=== PATIENT | male | born 1935 | race Caucasian/White ===

== ENCOUNTER 2025-04-30 09:19 | Emergency (ER) | payer MEDICARE, OTHER, SELFPAY ==
--- NOTE | ~2025-04-30 | CT_ITS ---
EXAMINATION: CT facial & cervical spine wo COMPARISON: None HISTORY: fall TECHNIQUE: Axial images were obtained without IV contrast. Sagittal, coronal reconstruction images were obtained from the axial views. CT scan performed using dose optimization techniques including the following automated exposure control; adjustment of mA and/or kV; use of iterative reconstruction technique. Automatic exposure control was used to reduce radiation dose. Permanent radiation dose record is archived to PACS. FINDINGS: CT facial bones: The nasal bones are intact. The anterior maxillary sinus fuller demonstrate a comminuted displaced fracture of the left anterior maxillary sinus wall with slightly displaced fracture of the lateral left maxillary sinus wall. The zygomatic arches are intact. The temporomandibular joints are intact. There is no retrobulbar hemorrhage identified. No preseptal swelling is noted with swelling overlying the left maxillary sinus. There are posttraumatic changes noted of the left maxillary sinus with air-fluid levels and areas of hemorrhage. There is a nondisplaced fracture of the left orbital floor. CT cervical spine: The lung apices demonstrate chronic changes. The soft tissues appear unremarkable. Grade 1 anterolisthesis of C4 on C5, no fracture is identified. There is severe loss of disc height at C5-6 and C6-7 with moderate to severe canal and foraminal stenosis. IMPRESSION: 1. Left-sided facial fractures detailed above with posttraumatic soft tissue changes. No acute fracture in the cervical spine. Reviewed, dictated and finalized at location P. IMPRESSION: 1. Left-sided facial fractures detailed above with posttraumatic soft tissue ch anges. No acute fracture in the cervical spine.
--- NOTE | ~2025-04-30 | CT_ITS ---
EXAMINATION: CT brain wo con DATE: 04/30/2025 09:46 INDICATION: Fall. TECHNIQUE: Computed tomography (CT) of the head was performed without intravenous contrast. The mA was adjusted according to patient size. Iterative reconstruction technique was employed. The dose-length product was 605.33 mGy-cm. COMPARISON: None FINDINGS: There are scattered areas of low attenuation in the cerebral white matter and deep gonzalez nuclei. There are old lacunar infarcts in the left basal ganglia. There is no intracranial hemorrhage, acute infarction, or abnormal intracranial mass lesion. The ventricles are normal in size. The mastoid air cells are normal. There are likely changes of ocular lens replacement surgeries. There are fractures of left zygomaticomaxillary complex. There is fluid in left maxillary sinus. IMPRESSION: 1. Old lacunar infarcts in the left basal ganglia. 2. Extensive nonspecific cerebral white matter disease and disease of the deep gonzalez nuclei, which likely represents chronic small vessel ischemic disease. 3. Fractures of left zygomaticomaxillary complex. Reviewed, dictated and finalized at location E.
[2025-04-30 09:27] VITALS: BP 161/74; PULSE 107; RESP 15; TEMP 36.7; O2SAT 99
--- NOTE | 2025-04-30 13:16 | ED.FALL ---
HPI - Fall General Chief Complaint: Fall Stated Complaint: fall Time Seen by Provider: 04/30/25 12:04 History of Present Illness HPI Narrative: 89-year-old male with past medical history including DVT on Xarelto presents to the emergency department today after mechanical slip and fall. Patient states that he was checking out of a local hotel when he tried to reach for his luggage cart it got away from him and he fell forward onto his left side face. Tried to brace his fall this hand. Did not lose consciousness and able to get up right away. Endorses some mild left-sided headache at this time and a mild nosebleed that has since stopped. Denies any fever, chills. No recent illnesses. Denies any syncope or presyncope. No prodromal symptoms. Was otherwise in his normal state of health. Bleeding controlled with bandages. Related Data Allergies Allergy/AdvReac Type Severity Reaction Status Date / Time No Known Allergies Allergy Verified 04/30/25 09:22 Review of Systems Review of Systems: As reviewed above in HPI Exam Narrative: GENERAL: [Well-appearing, well-nourished, and in no acute distress.] HEAD: [Normocephalic, atraumatic.] EYES: [PERRLA and EOMI.] ENT: Nares clear, no rhinorrhea or epistaxis. Mucous membranes moist. Small amounts of blood in the posterior oropharynx on left-sided noted but no active bleeding in the mouth. Anterior left bleeding from the nares visualized, no posterior bleeding seen, no contralateral nares bleeding. NECK: Supple. CHEST: [Clear to auscultation. No respiratory distress.] HEART: [Regular rate and rhythm]. No murmur heard. [Normal peripheral pulses.] ABDOMEN: [Soft, nondistended], [nontender], [No rigidity or guarding] EXTREMITIES: Normal range of motion. [No edema.] Full range of motion, no restricted supination or pronation, able to make okay sign at thumbs-up sign bilaterally. Image Editor strength equal 5/5. No overlying step-offs deformities. No midline spinal tenderness or deformity. No zygomatic tenderness or deformity on bilateral cheek exam. SKIN: Multiple superficial skin tears localized to various extremities. He has small superficial skin tears to his left dorsal surface of the left hand, lateral aspect of the posterior aspect of the distal left elbow. Small 1 cm laceration to the lateral aspect of the left face just past his eyebrow. No active bleeding or significant skin distance. Periorbital hematoma left-sided NEURO: [No focal deficits]. Alert and oriented [x3.] PSYCH: [Normal mood and affect.] Course Vital Signs Vital signs: Vital Signs Temperature 36.7 C 04/30/25 09:27 Pulse Rate 107 H 04/30/25 09:27 Respiratory Rate 15 04/30/25 09:27 Blood Pressure 161/74 H 04/30/25 09:27 Pulse Oximetry 99 04/30/25 09:27 Oxygen Delivery Room Air 04/30/25 09:27 Temperature 36.7 C 04/30/25 09:27 Pulse Rate 78 04/30/25 18:37 Respiratory Rate 20 04/30/25 18:37 Blood Pressure 188/100 H 04/30/25 18:37 Pulse Oximetry 98 04/30/25 18:37 Oxygen Delivery Room Air 04/30/25 09:27 Procedures Epistaxis Control left: Epistaxis Control Date: 04/30/25 Time Out Performed: Yes Nose Prepped With: phenylephrine Direct Inspection: yes Clots Removed by: blowing nose and manually Cautery Used: none Device Inserted: nasal tampon and hemostatic dressing Device Size: 5 Patient Tolerated Procedure: well Complications: continued epistaxis (minor droplets every 10-20seconds. otherwise hemostasis greatly improved) Laceration Laceration 1: Date: 04/30/25 Site: face Side (If applicable): left Size (cm): 1 Description: linear Depth: simple, single layer Local Anesthetic: none Pre-repair: wound explored, irrigated and deep structures intact ====== Skin Level ====== Skin layer closed with: dermabond ====== Subcutaneous Layer ====== ====== Muscle Layer ====== ====== Tendon Layer ====== Laceration 2: Date: 04/30/25 Site: upper extremity Side (If applicable): left Size (cm): 3 Description: linear and clean Depth: simple, single layer Local Anesthetic: none Pre-repair: wound explored, irrigated and deep structures intact ====== Skin Level ====== Skin layer closed with: dermabond and steri strips ====== Subcutaneous Layer ====== ====== Muscle Layer ====== ====== Tendon Layer ====== Laceration 3: Date: 04/30/25 Site: hand Side (If applicable): left Size (cm): 2 Description: linear Depth: simple, single layer Local Anesthetic: none Pre-repair: wound explored, irrigated and deep structures intact ====== Skin Level ====== Skin layer closed with: dermabond and steri strips ====== Subcutaneous Layer ====== ====== Muscle Layer ====== ====== Tendon Layer ====== MDM - Fall MDM Narrative Medical decision making narrative: 89-year-old male with past medical history including DVT on Xarelto presents to the emergency department today after mechanical slip and fall. Patient states that he was checking out of a local hotel when he tried to reach for his luggage cart it got away from him and he fell forward onto his left side face. Tried to brace his fall this hand. Did not lose consciousness and able to get up right away. Endorses some mild left-sided headache at this time and a mild nosebleed that has since stopped. Denies any fever, chills. No recent illnesses. Denies any syncope or presyncope. No prodromal symptoms. Was otherwise in his normal state of health. Bleeding controlled with bandages. Multiple superficial skin tears localized to various extremities. He has small superficial skin tears to his left dorsal surface of the left hand, lateral aspect of the posterior aspect of the distal left elbow. Small 1 cm laceration to the lateral aspect of the left face just past his eyebrow. No active bleeding or significant skin distance. Periorbital hematoma left-sided. Patient is awake alert oriented, normal neurological examination. Minor superficial injuries noted on examination but no signs of deformity or obvious traumatic significant trauma. CT of the head facial bones and cervical spine were obtained given his age and risk factors including being on Xarelto. CT scan shows left sided facial fractures including maxillary sinus anteriorly and left maxillary sinus wall. Zygoma are intact. Minor amount of posttraumatic soft tissue changes. CT of the head shows no acute intracranial abnormality. Old infarct and chronic small vessel disease. No cervical spine pathology. Patient re-evaluated and doing well. Tetanus shot was updated, Steri-Strips were used for his superficial abrasions in the extremities and Dermabond used for the small laceration to his left side forehead. He is ambulatory with a steady gait, no significant traumatic injuries were identified and he will be able to be followed up with at home by his primary care provider and encouraged to obtain an ENT referral back home in [place]. Patient is safe for discharge home at this time. Given Afrin in case he has any additional epistaxis. Prior to DC patient did have some minor droplets of blood from left nares. Re-evaluated with visualized nares with minor bleeding, no posterior bleeding or blood in oropharynx noted on re-exam. Applied direct pressure with more Afrin and ice pack. Seemed to stop after several minutes. Patient had some additional minor recurrence with small droplets of blood after the Afrin. single droplet every 10 or so seconds, no significant hemorrhage. At this time given the bleeding TXA soaked gauze was placed into the nostril and direct pressure applied. Bleeding has slowed down quite a bit but still having trouble to fully stop, likely from his anticoagulated status. After discussion with the patient direct tamponade was attempted with anterior nasal packing which successfully placed into the left naris. Appropriate cuff inflation with re-evaluation after 15 minutes showed good tamponade. Still having small droplets of blood every 20 seconds or so, but no not having any hemorrhage. No signs of any bleeding the posterior oropharynx or any contralateral naris bleeding. Patient remained asymptomatic from a cardiovascular standpoint without any lightheadedness, dizziness, syncope or presyncope. No pain and states he feels better but still having trouble with the droplets of blood which concerned him. Observed him here for several hours and still having some minor droplets of blood, vitals remain stable, repeat evaluation showed no contralateral bleeding or posterior or pharyngeal bleeding. No change in mentation. Patient expressed desire for admission given that he is not from the area and is concerned that he could have rebleeding at home or on his way back home. Laboratory studies were ordered at this time and ENT was consulted. I discussed the case with Dr. Joshua scherer ENT who after we discussed patient's CT findings and persistent but minor epistaxis recommended transfer to a trauma center given the midface fracture which is the likely source of the bleeding and stated that we do not manage those type of injuries here at [facility]. I relayed this to the patient who did not want to go transfer to another facility and refused transfer process to [facility] or [facility]. Patient wishes to go home at this time and stated that ?I will take my chances.? I relayed the concerns regarding the bleeding and described strict return precautions including worsening hemorrhage, contralateral naris bleeding, posterior oropharynx bleeding or tasting blood or swallowing blood, lightheadedness, dizziness, losing consciousness or feeling like he is going to lose consciousness, high heart rate or any other concerns and he should call 911 and return to the emergency department. Patient and family verbalized understanding the strict return precautions and were discharged home after declining transfer to higher level of care/trauma center for evaluation. Medical Records Attestation: I reviewed the patient's medical records. Lab Data Attestation: I reviewed the patient's lab results. 04/30/25 18:03 04/30/25 18:03 Labs: Lab Results 04/30/25 Range/Units 18:03 WBC 10.3 H (4.5-10.0) K/mm3 RBC 4.37 L (4.6-6.20) M/mm3 Hgb 12.9 L (14.0-18.0) g/dL Hct 39.8 L (42.0-52.0) % MCV 91.1 (80-100) fl MCH 29.5 (26-34) pg MCHC 32.4 (32-36) g/dl RDW 13.1 (11.5-14.5) % Plt Count 266 (150-375) k/mm3 MPV 11.6 H (7.4-10.4) fl Immature Gran % (Auto) 0.4 (0-0.5) % Neut % (Auto) 82.1 H (45.5-73.1) % Lymph % (Auto) 8.6 L (18.3-44.2) % [place] % (Auto) 7.9 (2.6-8.5) % Eos % (Auto) 0.3 (0-4.4) % Baso % (Auto) 0.7 (0.2-1.2) % Lymph # (Auto) 0.88 L (0.9-3.2) K/mm3 [place] # (Auto) 0.8 H (0.1-0.6) K/mm3 Eos # (Auto) 0.0 (0-0.3) K/mm3 Baso # (Auto) 0.1 (0.0-0.1) K/mm3 Abs Immat Gran (auto) 0.04 H (0.00-0.031) K/mm3 Absolute Neuts (auto) 8.4 H (1.3-6.7) K/mm3 Absolute Nucleated RBC 0.000 (0.0-0.012) K/mm3 Nucleated RBC % 0.0 (0.0-0.2) % PT 20.3 H (11.1-14.7) Seconds INR 1.8 APTT 30.8 (22.3-36.8) Seconds Sodium 139 (137-145) mmol/L Potassium 4.1 (3.4-5.0) mmol/L Chloride 106 (98-107) mmol/L Carbon Dioxide 25 (22-30) mmol/L Anion Gap 8 (4-12) mmol/L BUN 19 (9-20) mg/dL Creatinine 1.16 (0.7-1.3) mg/dL Estim Creat Clear Calc 35 ml/min Estimated GFR 59 (59 - ) Glucose 194 H (65-110) mg/dL Calcium 9.5 (8.4-10.2) mg/dL Imaging Data Attestation: I personally reviewed and interpreted this imaging study as follows: My impression: Impressions Head/Cervical Spine/Facial Bones CT 04/30/25 09:51 IMPRESSION: 1. Left-sided facial fractures detailed above with posttraumatic soft tissue changes. No acute fracture in the cervical spine. Head CT 04/30/25 10:43 IMPRESSION: 1. Old lacunar infarcts in the left basal ganglia. 2. Extensive nonspecific cerebral white matter disease and disease of the deep gonzalez nuclei, which likely represents chronic small vessel ischemic disease. 3. Fractures of left zygomaticomaxillary complex. Discharge Plan Discharge Clinical Impression: Acute anterior epistaxis, Closed fracture of left maxillary sinus Patient Disposition: Home Condition: Stable Instructions: Antibiotic Form, Nasal Fracture (ED), Facial Fracture (DC), Nosebleed (ED) Additional Instructions: We spoke to our ear, nose, and throat specialist who recommended transfer to a higher level of care center with appropriate capabilities for your fracture and nosebleed, but you preferred to go home tonight. Follow-up with your primary care provider back home and obtain a referral to an early head start director to evaluate you on outpatient basis for your left-sided maxillary fracture. The bleeding that you had from the injury has slowed down here and mostly stopped. Keep the nasal tampon in place for 3 days to keep pressure until you can see your doctor back home. Take the Afrin as needed for any residual nose bleeding and applied direct pressure, lean forward, ice pack to the back of the neck. If bleeding is uncontrolled or worsening return to the emergency department. Return if you start experiencing lightheadedness, dizziness, uncontrolled bleeding or any other issues. Refrain from blowing her nose and using any NSAIDs. Do not take your Xarelto until after tomorrow or cleared by your PCP/ENT back home. Patient Language: Polish Follow-up/Referrals: UNKNOWN,DOCTOR [Primary Care Provider] Time of Disposition: 18:17
[2025-04-30] MEDS: TETANUS,DIPHTHERIA,AC PERTUSSIS ADULT (0.5 ML) BOOSTRIX IM (13:25)
[2025-04-30] MEDS: OXYMETAZOLINE HCL 0.05% NAS 15 ML BTL (*BKC) 1 SPRAY NASAL (13:27)
--- NOTE | 2025-04-30 14:04 | PC.NURSE ---
Pt has persistent nose bleeding that has continued after Afrin and pressure. Nasal clamp applied.
--- OUTSIDE RECORDS SUMMARY | 2025-04-30 14:09 | XMS_ITS | Encounter Summary ---
Author Organization [facility] Address [address] [place] [address] Phone Care Team Providers Care Top Taper Machine Name Role Phone Gallito Tejeda MD Primary Care Provider [phone] Encounter Details Date Type Department Care Team (Late st Contact Info) Description 09/08/2023 Orders Only [facility] [address] [place] [address] Margo Streeter, [employer] INTERN [address] [place] [address] Social History Tobacco Use Types Packs/Day Years Used Date Smoking Tobacco: Former Cigarettes Q uit: 07/18/1963 Smokeless Tobacco: Never Alcohol Use Standard Drinks/Week Comments Yes 0 (1 standard drink = 0.6 oz pur e alcohol) Rarely 1 or 2 per month PHQ-2 Answer Date Recorded PHQ-2 Total Score 0 07/26/2023 Sex and Gender Information Value Date Recorded Sex Assigned at Not on file Legal Sex Male 2:44 PM CDT Gender Identity Not on file Sexual Orientation Not on file documented as of this encounter Plan of Treatment Upcoming Encounters Date Type Department Care Team (Late st Contact Info) Description 07/02/2025 9:30 AM CLIENT SERVICES COORDINATOR Office Visit [facility] [address] [place] [address] Amada Herron PA-C [address] [place] [address] 07/31/2025 3:15 PM CLIENT SERVICES COORDINATOR Office Visit [address] [place] [address] Gallito Tejeda MD [address] [place] [address] [place] [address] 09/02/2025 8:30 AM CLIENT SERVICES COORDINATOR Clinical Support [address] [place] [address] 09/09/2025 10:30 AM CLIENT SERVICES COORDINATOR Office Visit [address] [place] [address] Gallito Tejeda MD [address] [place] [address] [place] [address] documented as of this encounter Visit Diagnoses Not on filedocumented in this encounter Care Teams Top Taper Machine Relationship Specialty Start Date End Date Gallito Tejeda MD [address] [place] [address] [place] [address] PCP - General 03/08/17 Dr Rockwell Consulting Physician Dental Comic Writer 10/04/17 documented as of this encounter
--- OUTSIDE RECORDS SUMMARY | 2025-04-30 14:09 | XMS_ITS | Clinical Summary ---
Author Organization [facility] Address [address] [facility] [place] [address] Phone Care Team Providers Care Network Program Manager Name Role Phone Gallito Tejeda MD Primary Care Provider [phone] Allergies Active Allergy Reactions Criticality Noted Date Comments No Known Allergies 06/21/2017 Medications ascorbic acid, vitamin C, (VITAMIN C) 1,000 mg tablet Take 1 tablet (1,000 mg total) by mouth 1 (one) time each day in the morning. 7 Active UNABLE TO FIND PREVAGEN Activ e folic acid (FOLVITE) 800 mcg tablet Take 1 tablet (800 mcg total) by mouth 2 (two) times per day. Active MELATONIN ORAL Take 3 mg by mouth every night. Active Vitamin D3 125 mcg (5,000 unit) tablet Take 1 tablet (5,000 Units total) by mouth 1 (one) time each day. Active cyanocobalamin (vitamin B-12) 1,000 mcg tablet Take 1 tablet (1,000 mcg total) by mouth 1 (one) time each day. Active acetaminophen (TYLENOL) 500 mg tablet Take 1 tablet (500 mg total) by mouth every 6 (six) hours if needed for mild pain (1-3). Active simvastatin (ZOCOR) 20 mg tablet TAKE 1 TABLET DAILY IN THE EVENING 90 tablet 3 4 Active fluorouraciL (EFUDEX) 5 % cream Apply topically 1 (one) time each day. 4 Active traZODone (DESYREL) 50 mg tablet Take 1 tablet (50 mg total) by mouth every night. 90 tablet 3 4 Active NIFEdipine CC (ADALAT CC) 30 mg 24 hr tablet Take 1 tablet (30 mg total) by mouth 1 (one) time each day. 90 tablet 3 5 Active finasteride (PROSCAR) 5 mg tablet Take 1 tablet (5 mg total) by mouth 1 (one) time each day. 90 tablet 3 5 Active Xarelto 20 mg tablet TAKE 1 TABLET DAILY 90 tablet 3 5 Active Active Problems Problem Noted Date Diagnosed Date Unilateral inguinal hernia without obstruction o r gangrene 03/20/2024 Tear of tendon of rotator cuff 02/06/2024 Effusion of glenohumeral joint, right 02/06/2024 Right shoulder pain 01/26/2024 Cellulitis of left lower extremity 12/06/2023 Lower leg DVT (deep venous t hromboembolism), acute, bilateral 12/01/2021 Current use of anticoagulant therapy 12/01/2021 Assessment & Plan (04/02/2024 8:19 PM CDT): Sleep disturbance 11/30/[address] 11/26/2021 Assessment & Plan (04/02/2024 8:19 PM CDT): Urinary retention 11/24/2021 Assessment & Plan (04/02/2024 8:19 PM CDT): Orders: Urine culture Urinalysis with Microscopic if Indicated Abdominal pain 11/07/2021 Acute cystitis with hematuria 11/07/2021 Hypercalcemia 11/07/2021 Hypertension 11/07/2021 Liver lesion 11/07/2021 Mild dementia 11/07/2021 Renal mass, right 11/05/2021 Assessment & Plan (04/02/2024 8:19 PM CDT): Assessment & Plan (11/05/2021 1:26 PM CDT): Patient with PMHx of presents today for renal mass. CT A/P w/ Contrast 10/23/2021: 1. 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 Recommend follow-up urology consultation and evaluation. 2. Distended bladder. Rule out bladder outlet obstruction. 3. Sclerotic lesion in the right medial ilium most likely representing bone island but follow-up dental medicine bone scan is recommended to further characterize and evaluate. 4. Enlarged prostate. 5. Nonobstructing left renal calcifications. 6. Atherosclerosis abdominal aorta and coronary artery calcifications. I independently reviewed and interpreted the available images with review with the patient on the further management and care for findings on this test. Copy of imaging report provided to the patient. We had a long discussion about enhancing renal masses, small renal masses (less than 3 cm), and for masses larger than 3cm in size. The characteristics of enhancing renal are concerning for cancer and treated as such. There is a chance that it is benign but biopsy is not always diagnostic and negative biopsy does not rule out malignancy in another parts of the mass. In addition to the possibility that renal masses are benign, there may be metastasis to the kidney. We discussed treatment options for renal masses. This includes observation, active surveillance, surgery, and ablative procedures. Percutaneous ablative (cryotherapy or RFA) procedures (percutaneous or laparoscopic) can be appropriate in certain settings, but do not have the same track record as surgery. Although ablative therapies show promise of efficacy, long-term oncologic follow-up is not yet available. Data suggest that local control may be suboptimal when compared to surgical excision, and surgical salvage may be difficult. Surgical excision for renal masses either with radical nephrectomy or partial nephrectomy has been the mainstay of treatment for all renal masses including clinical stage 1 tumors. Cancer specific survival has been high with this approach. The main concern with radical nephrectomy is the negative impact on renal function and association with chronic kidney disease. This can be done in a traditional open fashion or laparoscopic and robotic fashion safely. Laparoscopic and robotic approaches have been shown to decrease perioperative morbidity with equivalent efficacy in cancer control. Partial nephrectomy yields similar oncologic outcomes as radical nephrectomy for appropriately selected patients. This can also be done in a traditional open fashion or laparoscopic/robotic fashion. Potential problems unique to partial nephrectomy include inadequate surgical margins, hemorrhage, hematoma, warm ischemia which may cause renal failure and still chronic kidney disease, dialysis, renal pseudoaneurysm, and urine leak. Multiple published series demonstrate open partial nephrectomy to be safe, effective and reproducible for the treatment of clinical T1 renal masses. Laparoscopic and robotic partial nephrectomy attempts to achieve equivalence with open partial nephrectomies. Most studies demonstrate that laparoscopic and robotic partial nephrectomies are associated with greater warm ischemia time and an increased risk of postoperative hemorrhage when compared to open surgery. We discussed that with any surgical procedures, partial or radical, are subject to multiple complications. Specifically, we discussed AR, stroke, DVT or PE perioperatively, as well as need for blood transfusion, which is much higher risk in partial nephrectomy. We also discussed injury to surrounding organs of the peritoneal and pleural cavity and lung. We also discussed prolonged urine leak requiring prolonged drain placement or ureteral stenting. For pleural or lung injury, there may be a chest tube that may be placed. We also discussed that at any time with a partial nephrectomy, the partial nephrectomy may need to be converted to a radical nephrectomy, mostly due to inadequate control of bleeding and with laparoscopic and robotic procedures, there may be a need to convert to an open procedure. Again, the most common risk and benefits of the surgical procedure were discussed in detail with the patient which include but not limited to bleeding, infection, sepsis, perforation, stricture, pain, abscess, urine leak that may require ureteral stenting, prolonged drainage, injury to adjacent structures, such as bowel which may need bowel diversion, as well as open repair, large vessel injury, splenic injury that may require splenectomy, ileus, pseudoaneurysm that may require interventional radiology coiling, renal failure, dialysis, hematuria, urinary tract infections, stone formation, fistula, CVA, DVT, AR, PE and possible . Patient had the opportunity to ask questions and all questions were answered to the patients satisfaction, I also gave the patient the opportunity to schedule a follow-up visit to discuss further and to seek additional or second opinion if the patient desires. After informed discussion, patient will proceed with follow-up with family. RTC in 2 weeks with family for office visit Weakness of left lower extremity 09/07/2021 Ambulates with cane 07/13/2021 Nocturia 09/27/2018 Decreased libido 09/27/2018 CKD (chronic kidney disease), stage III 09/23/19 17 Assessment & Plan (04/02/2024 8:19 PM CDT): Benign essential hypertension 06/14/2012 Mixed hyperlipidemia 06/14/2012 BPH (benign prostatic hyperplasia) 06/14/2012 Mitral valve disease 06/14/2012 Resolved Problems Problem Noted Date Diagnosed Date Resolved Date Acute pain of left knee 07/06/2021/2 07/2021 Encounters Date Type Department Care Team Description 04/11/2025 Orders Only [address] [place] [address] Margo Streeter, SPANISH SPEAKING NANNY-RF DESIGN ENGINEER History of squamous cell carcinoma (Primary Dx) 04/11/2025 Orders Only [address] [place] [address] Margo Streeter, VALENTIN-RF DESIGN ENGINEER 03/26/2025 Clinic Scan Only Encounter [address] [place] [address] Gallito Tejeda MD 03/14/2025 Clinic Scan Only Encounter [address] [place] [phone] Gallito Tejeda MD 03/11/[address] [place] [address] Gallito Tejeda MD [facility] 02/26/2025 Clinic Scan Only Encounter [address] [place] [id number] Gallito Tejeda MD 02/26/[address] [place] [address] Cassie Espinoza MA Update on Home Care 02/22/2025 2:00 PM CDT Office Visit [facility] [address] [place] [address] Darvin Crump, PA Rotator cuff arthropathy, right (Primary Dx); Biceps tendinitis of right upper extremity; Impingement syndrome of right shoulder 02/22/2025 Travel 02/22/2025 Telephone [facility] [address] [place] [address] Deny Reilly DO 02/20/2025 Telephone [facility] [address] [place] [phone] Deny Reilly DO FOLLOW UP FROM 2023 from Last 3 Months Immunizations Immunization Administration Dates Next Due FLU VACCINE,INACTIVATED, ADJ UVANTED, TRIVALENT, PF, IM 04/02/2024 Influenza Split High Dose Pr eservative Free IM 04/08/2022 Influenza TIV (IM) 05/12/2023,,03/26/2020,04/19,04/21/2018,05/27/2017,09/08/2016 ,05/21/2016,04/23/2015 Pfizer SARS-CoV-2 Bivalent Booster 04/13/2022 Pfizer SARS-CoV-2 Vaccination 04/16/2021, 021,08/26/2020 Pneumococcal Conjugate 13-Valent 09/08/2016 Pneumococcal Polysaccharide 04/14/2020, 5 Tdap 09/16/2016,09/08/2016 Zoster 03/20/2021,05/21/2016 Family History Medical History Relation Comments Cancer Father Cancer Other Hyperlipidemia Other Hypertension Other Relation Status Comments Father Other Social History Tobacco Use Types Packs/Day Years Used Date Smoking Tobacco: Former Cigarettes Q uit: 07/18/1963 Smokeless Tobacco: Never Tobacco Cessation:Counseling Given: Not Answered Alcohol Use Standard Drinks/Week Comments Yes 0 (1 standard drink = 0.6 oz pur e alcohol) Rarely 1 or 2 per month Utilities Answer Date Recorded In the past 12 months has [employer], gas, oil, or water [employer] threatened to shut off services in your home? No 07/29/2024 Overall Financial Resource Strain (CARDIA) Answe r Date Recorded How hard is it for you to pa y for the very basics like food, housing, medical care, and heating? Not hard at all 07/29/2024 PHQ-2 Answer Date Recorded PHQ-2 Total Score 0 07/30/2024 Hunger Vital Sign Answer Date Recorded Within the past 12 months, y ou worried that your food would run out before you got the money to buy more. Never true 07/29/19 25 Ran Out of Food in the Last Year Not on file 07/29/2024 PRAPARE - Transportation Answer Date Re corded In the past 12 months, has l ack of transportation kept you from medical appointments or from getting medications? No 07/29/2024 Lack of Transportation (Non-Medical) Not on file 07/29/2024 PHQ-9 Answer Date Recorded PHQ-9 Total Score 0 07/29/2024 Housing Stability Vital Sign Answer Matt e Recorded In the last 12 months, was t here a time when you were not able to pay the mortgage or rent on time? No 07/29/2024 Number of Times Moved in the Last Year Not on fi le 07/29/2024 Homeless in the Last Year Not on file 2024 Interpersonal Safety Answer Date Record ed Safe in Home Yes 05/17/2024 Are you in immediate danger? Not on file Is your partner at the health facility now? Not on file 05/17/2024 Do you want to (or have to) go home with your pa rtner? Not on file 05/17/2024 Do you have someplace safe to go? Not on file 05/17/2024 Have there been threats or d irect abuse of you or your children? No 05/17/2024 When did the abuse occur? Not on file 2023 Do you feel you are still at risk? Not on file 05/17/2024 Are you in contact with your ex-partner or do you share children or custody? Not on file 05/17/2024 Are you afraid your life may be in danger? Not o n file 05/17/2024 Has the violence gotten wors e or is it getting scarier? More often? Not on file 05/17/2024 Has anyone ever choked or tried to choke you? No 05/17/2024 Do you feel you are still at risk for choking? N ot on file 05/17/2024 Are you in contact with ex-p artner who choked or attempted to choke you? or do you share children or custody? Not on file Are you afraid your life may be in danger due to choking? Not on file 05/17/2024 Has the choking gotten worse or is it getting scarier? More often? Not on file 05/17/2024 Has your partner used weapons, alcohol or drugs? Not on file 05/17/2024 Has your partner ever held y ou or your children against your will? Not on file 05/17/2024 Does your partner ever watch you closely, follow you or stalk you? Not on file 05/17/2024 Has your partner ever threat ened to kill you, him/herself or your children? Not on file 05/17/2024 When did the choking or choking attempt occur? N ot on file 05/17/2024 Do you feel you are still at risk for choking? N ot on file 05/17/2024 Safe in Relationship Yes 05/17/2024 Sex and Gender Information Value Date Recorded Sex Assigned at Not on file Legal Sex Male 2:44 PM CDT Gender Identity Not on file Sexual Orientation Not on file Last Filed Vital Signs Vital Sign Reading Time Taken Comments Blood Pressure 134/76 08/14/2024 2:36 PM HORSES OR MULES TEAMSTER Pulse 75 08/14/2024 2:36 PM HORSES OR MULES TEAMSTER Temperature 36.4 C (97.6 F) 07/30/2024 2:04 PM HORSES OR MULES TEAMSTER Respiratory Rate 14 08/14/2024 2:36 PM HORSES OR MULES TEAMSTER Oxygen Saturation 99% 08/14/2024 2:36 PM HORSES OR MULES TEAMSTER Inhaled Oxygen Concentration - - Weight 68.8 kg (151 lb 9.6 oz) 08/14/2024 2:36 P M HORSES OR MULES TEAMSTER Height 170.2 cm (5' 7) 08/14/2024 2:36 PM HORSES OR MULES TEAMSTER Body Mass Index 23.74 08/14/2024 2:36 PM HORSES OR MULES TEAMSTER Plan of Treatment Upcoming Encounters Date Type Department Care Team (Late st Contact Info) Description 07/02/2025 9:30 AM HORSES OR MULES TEAMSTER Office Visit [address] [address] Amada Herron PA-C [address] [place] [address] 07/31/2025 3:15 PM HORSES OR MULES TEAMSTER Office Visit [address] [place] [address] Gallito Tejeda MD [address] [place] [address] [place] [address] 09/02/2025 8:30 AM HORSES OR MULES TEAMSTER Clinical Support [address] [place] [address] 09/09/2025 10:30 AM HORSES OR MULES TEAMSTER Office Visit [address] [place] [address] Gallito Tejeda MD [address] [place] [address] [place] [address] Health Maintenance Due Date Last Done Comments Zoster Vaccines (2 of 3) 05/15/2021 03/20/2021, 11/0 10/2015 Influenza Vaccine (#1) 2025 , 05/12/2023, 04/08/2022, Additional history exists Depression Screening 07/30/2025 07/30/2024, 06/28/2018, 10/04/2017 Medicare Wellness 07/30/2025 07/30/2024, , 07/26/2023, Additional history exists Fall Risk Screening 08/14/2025 08/14/2024 DTaP,Tdap,and Td Vaccines (3 - Td or Tdap) 09/16/2026 09/16/2016, 09/08/2016 Pneumococcal 50+ Yr Completed 04/14/2020, 09/08/2016, 04/23/2015 Pneumococcal Discontinued 04/14/2020, 08/19, 04/23/2015 COVID-19 Vaccine Discontinued 02/07/2023, , 04/16/2021, Additional history exists HIB Vaccines Aged Out No longer eligi ble based on patient's age to complete this topic HPV Vaccines Aged Out No longer eligi ble based on patient's age to complete this topic Hepatitis A Vaccines Discontinued Hepatitis B Vaccines Discontinued IPV Vaccines Aged Out No longer eligi ble based on patient's age to complete this topic MMR Vaccines Discontinued Meningococcal B Vaccine Aged Out No l onger eligible based on patient's age to complete this topic Meningococcal Vaccine Aged Out No homer andrea eligible based on patient's age to complete this topic RSV Antibodies Aged Out No longer barbi gible based on patient's age to complete this topic RSV Vaccine Discontinued Varicella Vaccines Discontinued Procedures Procedure Name Priority Date/Time Associated Diagnosis Comments MN ARTHROCENTESIS ASPIR&/INJ MAJOR JT/BURSA W/O US Routine 02/22/2025 3:10 PM CDT Rotator cuff arthropathy, right Impingement syndrome of right shoulder LARGE JOINT ASPIRATION/INJECTION Routine 02/22/2025 3:09 PM CDT Biceps tendinitis of right upper extremity from Last 3 Months Results * MN ARTHROCENTESIS ASPIR&/INJ MAJOR JT/BURSA W/O US (02/22/2025 3:10 PM CDT) Belinda Ferguson MA - 02/22/2025 3:10 PM CDT Belinda Rodriguez MA 02/22/2025 4:42 PM LG Arthrocentesis: R subacromial bursa on 02/22/2025 3:10 PM Indications: pain Details: 25 G needle Medications: 1 mL triamcinolone acetonide 40 mg/mL; 4 mL lidocaine 10 mg/mL (1 %) Outcome: tolerated well, no immediate complications Procedure, treatment alternatives, risks and benefits explained, specific risks discussed. Consent was given by the patient. Immediately prior to procedure a time out was called to verify the correct patient, procedure, equipment, patient support specialist and site/side marked as required. Patient was prepped and draped in the usual sterile fashion. Darvin ALVARADO IN CLINIC/BEDSIDE ORDERABLES F inal Result * LG Arthrocentesis (02/22/2025 3:09 PM CDT) Belinda Ferguson MA - 02/22/2025 3:09 PM CDT Belinda Rodriguez MA 02/22/2025 4:42 PM LG Arthrocentesis (Right biceps tendon) on 02/22/2025 3:09 PM Indications: pain Details: 25 G needle, ultrasound-guided Medications: 1 mL triamcinolone acetonide 40 mg/mL; 4 mL lidocaine 10 mg/mL (1 %) Outcome: tolerated well, no immediate complications Procedure, treatment alternatives, risks and benefits explained, specific risks discussed. Consent was given by the patient. Immediately prior to procedure a time out was called to verify the correct patient, procedure, equipment, patient support specialist and site/side marked as required. Patient was prepped and draped in the usual sterile fashion. us Darvin ALVARADO IN CLINIC/BEDSIDE ORDERABLES F inal Result from Last 3 Months Insurance MEDICARE PART A AND B [place] [id number] [employer] Care Teams Network Program Manager Relationship Specialty Start Date End Date Gallito Tejeda MD [address] [facility] [place] [address] PCP - General 03/08/17 Dr Rockwell Consulting Physician Dental Vending Machine Attendant 10/04/17
--- OUTSIDE RECORDS SUMMARY | 2025-04-30 14:09 | XMS_ITS | Encounter Summary ---
Author Organization [employer] [facility] Address [address] [place] [address] Phone Care Team Providers Care Spine Surgeon Name Role Phone Gallito Tejeda MD Primary Care Provider [phone] Encounter Details Date Type Department Care Team (Late st Contact Info) Description 11/22/2023 Orders Only [facility] [address] [facility] [place] [address] Gallito Tejeda MD [address] [facility] [place] [address] Benign essential hypertension (Primary Dx); Benign prostatic hyperplasia with nocturia; Mixed hyperlipidemia; Stage 3a chronic kidney disease (HCC) Social History Tobacco Use Types Packs/Day Years [...] st Contact Info) Description 07/02/2025 9:30 AM WATER SERVICE SUPERVISOR Office Visit [facility] [address] [place] [address] Amada Herron PA-C [address] [place] [address] 07/31/2025 3:15 PM WATER SERVICE SUPERVISOR Office Visit [address] [place] [address] Gallito Tejeda MD [address] [place] [address] [place] [address] 09/02/2025 8:30 AM WATER SERVICE SUPERVISOR Clinical Support [address] [place] [address] 09/09/2025 10:30 AM WATER SERVICE SUPERVISOR Office Visit [address] [place] [address] Gallito Tejeda MD [address] [place] [address] [place] [address] documented as of this encounter Visit Diagnoses Diagnosis Benign essential hypertension- Primary Benign prostatic hyperplasia with nocturia Mixed hyperlipidemia Stage 3a chronic kidney disease (HCC) documented in this encounter Care Teams Spine Surgeon Relationship Specialty Start Date End Date Gallito Tejeda MD [address] [place] [address] [place] [address] PCP - General 03/08/17 Dr Rockwell Consulting Physician Dental Supervisor Fertilizer Processing 10/04/17 documented as of this encounter
--- OUTSIDE RECORDS SUMMARY | 2025-04-30 14:10 | XMS_ITS | Patient Health Record ---
Author Organization [facility] Address [address] [address] Support Name Relationship Address Phone VINI WHITTINGTON Guarantor Unknown [phone] Reason For Referral No Information Plan Of Treatment No Information Insurance Providers Payer Name Payer Address Payer Phone Subscriber Number Group Number Insured Name Patient Relationship to Insured Coverage Start Date Coverage End Date [facility] [address] [place] [phone] [id number] VINI WHITTINGTON Self - patient is the insured [employer] /Medicare Part B [place] [address] [place] [id number] VINI WHITTINGTON Self - patient is the insured
--- OUTSIDE RECORDS SUMMARY | 2025-04-30 14:10 | XMS_ITS | Encounter Summary ---
Author Organization [facility] Address [address] [place] [address] Care Team Providers Care Prize Fighter Name Role Phone Gallito Tejeda MD Primary Care Provider [phone] Reason for Referral * MRI/CT Scan (Routine) - Closed Specialty Diagnoses / Procedures Referred By Contac t Referred To Contact Radiology Diagnoses Renal cyst Procedures CT Abdomen Pelvis With and Without Contrast Gallito Tejeda MD [address] [facility] [address] [place] [address] Phone: tel: fax: [address] [address] Referral ID Status Reason Start Date Expiration Date V isits Requested Visits Authorized [id number] Closed Other 11/23/2022 05/22/2023 1 1 Encounter Details Date Type Department Care Team (Late st Contact Info) Description 11/23/2022 Transcribe Orders [facility] Scheduling Department [address] [facility] [address] [place] [address] Gallito Tejeda MD [address] [facility] [place] [address] Renal cyst (Primary Dx) Social History Tobacco Use Types Packs/Day Years Used Date Smoking Tobacco: Former Pipe Smokeless Tobacco: Former Alcohol Use Standard Drinks/Week Comments Not Currently 0 (1 standard drink = 0.6 oz pur e alcohol) Sex and Gender Information Value Date Recorded Sex Assigned at Not on file Legal Sex Male 6:19 PM CDT Gender Identity Not on file Sexual Orientation Not on file documented as of this encounter Plan of Treatment Not on file documented as of this encounter Results * CT Abdomen Pelvis With and Without Contrast (12/08/2022 9:57 AM CDT) Anatomical Region Laterality Modality Abdomen, Pelvis Computed Tomogra phy 12/08/2022 11:0 5 AM CDT Impressions 12/08/2022 11:14 AM CDT 1. Large complex right renal mass unchanged from 05/22/2022, remains suspicious for neoplasm. 2. Stable CT abdomen pelvis. Narrative 12/08/2022 11:14 AM CDT EXAM: CT ABDOMEN PELVIS W WO CONTRAST PROVIDED CLINICAL INFORMATION: RENAL CYST, PREVIOUS CT HERE COMPARISON: 05/22/2022 TECHNIQUE: Pre and post iv contrast imaging was of abdomen and pelvis performed. Low dose scan with automatic exposure control was performed. FINDINGS: ABDOMEN: There are multiple small cysts scattered throughout the liver. The spleen pancreas and adrenals are within normal limits. There is a moderate-sized hiatal hernia. Previously described 23.1 x 15 x 17.5 cm complex cystic right renal mass with thickened enhancing nodularity now measures demonstrates no significant interval change in size and/or overall appearance. There is no nephrolithiasis or obstructive uropathy on the right. On the left, there are several adjacent 3-5 and matter nonobstructing stones in the lower pole of the nondilated collecting system. No ureteral stone or obstructive uropathy identified. No mechanical bowel obstruction or free air. There is diverticulosis with no evidence of diverticulitis identified. Pelvis: There is no distal ureteral or bladder stone. Bladder is nondistended containing a Kuhn catheter. There is concentric thickening of the nondistended bladder wall. There is sigmoid diverticulosis with no evidence of diverticulitis. There is no bulky, pathologic appearing adenopathy. Degenerative changes are noted in the lumbar spine. Geographic sclerotic focus right iliac wing remains stable. Procedure Note Tyler Padgett MD - 12/08/2022 EXAM: CT ABDOMEN PELVIS W WO CONTRAST PROVIDED CLINICAL INFORMATION: RENAL CYST, PREVIOUS CT HERE COMPARISON: 05/22/2022 TECHNIQUE: Pre and post iv contrast imaging was of abdomen and pelvis performed. Low dose scan with automatic exposure control was performed. FINDINGS: ABDOMEN: There are multiple small cysts scattered throughout the liver. The spleen pancreas and adrenals are within normal limits. There is a moderate-sized hiatal hernia. Previously described 23.1 x 15 x 17.5 cm complex cystic right renal mass with thickened enhancing nodularity now measures demonstrates no significant interval change in size and/or overall appearance. There is no nephrolithiasis or obstructive uropathy on the right. On the left, there are several adjacent 3-5 and matter nonobstructing stones in the lower pole of the nondilated collecting system. No ureteral stone or obstructive uropathy identified. No mechanical bowel obstruction or free air. There is diverticulosis with no evidence of diverticulitis identified. Pelvis: There is no distal ureteral or bladder stone. Bladder is nondistended containing a Kuhn catheter. There is concentric thickening of the nondistended bladder wall. There is sigmoid diverticulosis with no evidence of diverticulitis. There is no bulky, pathologic appearing adenopathy. Degenerative changes are noted in the lumbar spine. Geographic sclerotic focus right iliac wing remains stable. IMPRESSION 1. Large complex right renal mass unchanged from 05/22/2022, remains suspicious for neoplasm. 2. Stable CT abdomen pelvis. us Gallito Tejeda MD IMG CT ORDERABLES Final Re sult documented in this encounter Visit Diagnoses Diagnosis Renal cyst- Primary Unspecified congenital cystic kidney disease Renal cyst Unspecified congenital cystic kidney disease documented in this encounter Care Teams Prize Fighter Relationship Specialty Start Date End Date Gallito Tejeda MD [address] [facility] [place] [address] PCP - General 11/08/13 documented as of this encounter
--- OUTSIDE RECORDS SUMMARY | 2025-04-30 14:10 | XMS_ITS | Encounter Summary ---
Author Organization [facility] [facility] Address [address] [place] [address] Phone Care Team Providers Care Mortgage Assistant Name Role Phone Gallito Tejeda MD Primary Care Provider [phone] Encounter Details Date Type Department Care Team (Late st Contact Info) Description 04/02/2024 Abstract [facility] [address], [address] [address] Althea Lemus, BEE RAISER-MOBILE LAB TECHNICIAN [address] [place] [address] Social History Tobacco Use Types Packs/Day Years Used Date Smoking Tobacco: Former Cigarettes Q uit: 07/18/1963 Smokeless Tobacco: Never Alcohol Use Standard Drinks/Week Comments Yes 0 (1 standard drink = 0.6 oz pur e alcohol) Rarely 1 or 2 per month PHQ-2 Answer Date Recorded PHQ-2 Score 1 03/30/2024 PHQ-9 Answer Date Recorded PHQ-9 Total Score 1 03/30/2024 Sex and Gender Information Value Date Recorded Sex Assigned at Not on file Legal Sex Male 2:44 PM CDT Gender Identity Not on file Sexual Orientation Not on file documented as of this encounter Plan of Treatment Upcoming Encounters Date Type Department Care Team (Late st Contact Info) Description 07/02/2025 9:30 AM BROOMCORN THRESHER Office Visit [id number] [place] [address] Amada Herron PA-C [address] [place] [address] 07/31/2025 3:15 PM BROOMCORN THRESHER Office Visit [address] [place] [address] Gallito Tejeda MD [address] [place] [address] [place] [address] 09/02/2025 8:30 AM BROOMCORN THRESHER Clinical Support [address] [place] [address] 09/09/2025 10:30 AM BROOMCORN THRESHER Office Visit [address] [place] [address] Gallito Tejeda MD [address] [place] [address] [place] [address] documented as of this encounter Visit Diagnoses Not on filedocumented in this encounter Care Teams Mortgage Assistant Relationship Specialty Start Date End Date Gallito Tejeda MD [address] [place] [address] [place] [address] PCP - General 03/08/17 Dr Rockwell Consulting Physician Dental Apple Thinner 10/04/17 documented as of this encounter
--- OUTSIDE RECORDS SUMMARY | 2025-04-30 14:10 | XMS_ITS | Encounter Summary ---
Author Organization [facility] Address [address] [place] [address] Care Team Providers Care Telephone Messenger Name Role Phone Gallito Tejeda MD Primary Care Provider [phone] Reason for Referral * MRI/CT Scan (Routine) - Closed Specialty Diagnoses / Procedures Referred By Contac t Referred To Contact Radiology Diagnoses Acute cystitis with hematuria Renal mass Urinary catheter in place Procedures CT Abdomen Pelvis With and Without Contrast Gallito Tejeda MD [address] [facility] [place] [address] Phone: tel: fax: [address] [address] Referral ID Status Reason Start Date Expiration Date V isits Requested Visits Authorized [id number] Closed Other 05/13/2022 11/09/2022 1 1 Encounter Details Date Type Department Care Team (Late st Contact Info) Description 05/13/2022 Transcribe Orders [facility] Scheduling Department [address] [facility] [address] [place] [address] Gallito Tejeda MD [address] [facility] [place] [address] Bladder replaced by other means (Primary Dx); Acute cystitis with hematuria; Renal mass; Urinary catheter in place Social History Tobacco Use Types Packs/Day Years [...] CT Abdomen Pelvis With and Without Contrast (05/19/2022 2:15 PM CDT) Anatomical Region Laterality Modality Abdomen, Pelvis Computed Tomogra phy 05/20/2022 7:50 AM CDT Impressions 05/20/2022 8:01 AM CDT 23.1 cm complex cystic right renal mass with irregular wall thickening and enhancing nodularity is similar to prior. Narrative 05/20/2022 8:[address] ABDOMEN PELVIS W WO CONTRAST 05/19/2022 1:48 PM INDICATION: URINARY CATHETER IN PLACE, ACUTE CYSTITIS WITH HEMATURIA; RENAL MASS, RIGHT COMPARISON: 11/16/2021, 11/06/2021 TECHNIQUE: CT examination of the abdomen and pelvis was performed before and after IV contrast administration. This is a low-dose scan using automated exposure control and iterative reconstruction technique. FINDINGS: Lower chest: The lung bases are clear. Liver: Stable cysts. Gallbladder: Normal. Pancreas: Normal. Spleen: Normal. Adrenal glands: Normal. Kidneys: 23.1 x 15.0 x 17.5 cm complex cystic right renal mass with wall thickening and enhancing nodularity is slightly increased from 11/16/2021 and slightly smaller than the CT prior to aspiration. 3 mm left renal calculus. Bowel: Moderate hiatal hernia. No bowel obstruction. No evidence of acute bowel inflammation. Vasculature: Atherosclerotic calcifications. No aortic aneurysm. Patent IVC with displacement from the mass. Lymph nodes: No periportal, retroperitoneal or pelvic adenopathy. Bladder: Kuhn catheter. Reproductive organs: Enlarged prostate. Bones: Degenerative changes in the spine. Procedure Note Sid Lara MD - 05/20/2022 CT ABDOMEN PELVIS W WO CONTRAST 05/19/2022 1:48 PM INDICATION: URINARY CATHETER IN PLACE, ACUTE CYSTITIS WITH HEMATURIA; RENAL MASS, RIGHT COMPARISON: 11/16/2021, 11/06/2021 TECHNIQUE: CT examination of the abdomen and pelvis was performed before and after IV contrast administration. This is a low-dose scan using automated exposure control and iterative reconstruction technique. FINDINGS: Lower chest: The lung bases are clear. Liver: Stable cysts. Gallbladder: Normal. Pancreas: Normal. Spleen: Normal. Adrenal glands: Normal. Kidneys: 23.1 x 15.0 x 17.5 cm complex cystic right renal mass with wall thickening and enhancing nodularity is slightly increased from 11/16/2021 and slightly smaller than the CT prior to aspiration. 3 mm left renal calculus. Bowel: Moderate hiatal hernia. No bowel obstruction. No evidence of acute bowel inflammation. Vasculature: Atherosclerotic calcifications. No aortic aneurysm. Patent IVC with displacement from the mass. Lymph nodes: No periportal, retroperitoneal or pelvic adenopathy. Bladder: Kuhn catheter. Reproductive organs: Enlarged prostate. Bones: Degenerative changes in the spine. IMPRESSION 23.1 cm complex cystic right renal mass with irregular wall thickening and enhancing nodularity is similar to prior. Gallito Tejeda MD IMG CT ORDERABLES Final Re sult documented in this encounter Visit Diagnoses Diagnosis Bladder replaced by other means- Primary Acute cystitis with hematuria Renal mass Unspecified disorder of kidney and ureter Urinary catheter in place Other postprocedural status Acute cystitis with hematuria Renal mass Unspecified disorder of kidney and ureter Urinary catheter in place Other postprocedural status documented in this encounter Care Teams Telephone Messenger Relationship Specialty Start Date End Date Gallito Tejeda MD [address] [facility] [place] [address] PCP - General 11/08/13 documented as of this encounter
--- OUTSIDE RECORDS SUMMARY | 2025-04-30 14:10 | XMS_ITS | Encounter Summary ---
Author Organization [facility] Address [address] [place] [address] Phone Care Team Providers Care Recreation Aide Name Role Phone Gallito Tejeda MD Primary Care Provider [phone] Encounter Details Date Type Department Care Team (Late st Contact Info) Description 04/11/2025 Orders Only [facility] [address] [place] [address] Margo Streeter, VALENTIN-STABILIZER OPERATOR [address], [place] [id number] Social History Tobacco Use Types Packs/Day Years Used Date Smoking Tobacco: Former Cigarettes Q uit: 07/18/1963 Smokeless Tobacco: Never Alcohol Use Standard Drinks/Week Comments Yes 0 (1 standard drink = 0.6 oz pur e alcohol) Rarely 1 or 2 per month Utilities Answer Date Recorded In the past 12 months has [employer] electric, gas, oil, or water company threatened to shut off services in your [...] st Contact Info) Description 07/02/2025 9:30 AM HYDROGENATION OPERATOR Office Visit [address] [phone] Amada Herron PA-C [address] [place] [address] 07/31/2025 3:15 PM HYDROGENATION OPERATOR Office Visit [address] [place] [address] Gallito Tejeda MD [address] [place] [address] [place] [address] 09/02/2025 8:30 AM HYDROGENATION OPERATOR Clinical Support [address] [place] [phone] 09/09/2025 10:30 AM HYDROGENATION OPERATOR Office Visit [address] [place] [address] Gallito Tejeda MD [address] [facility] [address] [place] [phone] documented as of this encounter Visit Diagnoses Not on filedocumented in this encounter Care Teams Recreation Aide Relationship Specialty Start Date End Date Gallito Tejeda MD [address] [facility] [place] [address] PCP - General 03/08/17 Dr Rockwell Consulting Physician Dental Tear Down Worker 10/04/17 documented as of this encounter
--- OUTSIDE RECORDS SUMMARY | 2025-04-30 14:10 | XMS_ITS | Encounter Summary ---
Author Organization [facility] Address [address] [place] [address] Phone Care Team Providers Care Supervisor Metal Fabricating Name Role Phone Gallito Tejeda MD Primary Care Provider [phone] Encounter Details Date Type Department Care Team (Late st Contact Info) Description 05/19/2021 Orders Only [facility] [address] [place] [address] Janine Morales MA Social History Tobacco Use Types Packs/Day Years Used Date Smoking Tobacco: Former Cigarettes Q uit: 1964 Smokeless Tobacco: Never Alcohol Use Standard Drinks/Week Comments Yes 0 (1 standard drink = 0.6 oz pur e alcohol) PHQ-2 Answer Date Recorded PHQ-2 Total Score 0 07/08/2020 Sex and Gender Information Value Date Recorded Sex Assigned at Not on file Legal Sex Male 2:44 PM CDT Gender Identity Not on file Sexual Orientation Not on file documented as of this encounter Plan of Treatment Upcoming Encounters Date Type Department Care Team (Late st Contact Info) Description 07/02/2025 9:30 AM CAR SUPERVISOR Office Visit [facility] [address] [place] [address] Amada Herron PA-C [address] [place] [address] 07/31/2025 3:15 PM CAR SUPERVISOR Office Visit [address] [place] [phone] Gallito Tejeda MD [address] [place] [address] [place] [address] 09/02/2025 8:30 AM CAR SUPERVISOR Clinical Support [address] [place] [address] 09/09/2025 10:30 AM CAR SUPERVISOR Office Visit [address] [place] [address] Gallito Tejeda MD [address] [place] [address] [place] [address] documented as of this encounter Visit Diagnoses Not on filedocumented in this encounter Care Teams Supervisor Metal Fabricating Relationship Specialty Start Date End Date Gallito Tejeda MD [address] [place] [address] [place] [address] PCP - General 03/08/17 Parker Johansen Consulting Physician Dermatology 10/04/17 07/12/21 Dr Rockwell Consulting Physician Dental Coreroom Foundry Laborer 10/04/17 documented as of this encounter
--- OUTSIDE RECORDS SUMMARY | 2025-04-30 14:10 | XMS_ITS | Encounter Summary ---
Author Organization [employer] Address [address] [place] [address] Phone Care Team Providers Care Room Service Food Service Attendant Name Role Phone Gallito Tejeda MD Primary Care Provider Reason for Referral * Surgical (Urgent) - Closed Specialty Diagnoses / Procedures Referred By Montrell navas Referred To Contact Orthopedic Surgery / Orthopaedic Surgery Diagnoses Chronic right shoulder pain Effusion of glenohumeral joint, right Tear of tendon of rotator cuff Osteoarthritis of right shoulder, unspecified osteoarthritis type Margo Streeter APRN-CNP [address] [place] [address] Phone: tel: fax: Deny Reilly DO [address] [place] [address] Phone: tel: fax: Referral ID Status Reason Start Date Expiration Date Visits Re quested Visits Authorized [id number] Closed 02/06/2024 02/06/2025 1 1 Encounter Details Date Type Department Care Team (Late st Contact Info) Description 02/06/2024 Orders Only [facility] [address] [facility] [place] [address] Margo Streeter, STOCK FITTER-FUNCTIONAL MANAGER [address] [place] [address] Chronic right shoulder pain (Primary Dx); Effusion of glenohumeral joint, right; Tear of tendon of rotator cuff; Osteoarthritis of right shoulder, unspecified osteoarthritis type Social History Tobacco Use Types Packs/Day Years [...] st Contact Info) Description 07/02/2025 9:30 AM OFFICE CLIN ASST Office Visit [address] [address] Amada Herron PA-C [address] [place] [address] 07/31/2025 3:15 PM OFFICE CLIN ASST Office Visit [address] [place] [address] Gallito Tejeda MD [address] [place] [address] [place] [address] 09/02/2025 8:30 AM OFFICE CLIN ASST Clinical Support [address] [place] [address] 09/09/2025 10:30 AM OFFICE CLIN ASST Office Visit [address] [place] [address] Gallito Tejeda MD [address] [place] [address] [place] [address] Scheduled Referrals Name Type Priority Associated Diagnoses Orde r Schedule Ambulatory referral to Orthopedic Surgery Outpatient Referral Routine Chronic right shoulder pain Effusion of glenohumeral joint, right Tear of tendon of rotator cuff Osteoarthritis of right shoulder, unspecified osteoarthritis type 1 Occurrences starting 02/06/2024 until 08/08/2025 documented as of this encounter Visit Diagnoses Diagnosis Chronic right shoulder pain- Primary Effusion of glenohumeral joint, right Tear of tendon of rotator cuff Osteoarthritis of right shoulder, unspecified osteoarthritis type documented in this encounter Care Teams Room Service Food Service Attendant Relationship Specialty Start Date End Date Gallito Tejeda MD [address] [facility] [place] [place] [address] PCP - General 03/08/17 Dr Rockwell Consulting Physician Dental Eye Dropper Assembler 10/04/17 documented as of this encounter
--- OUTSIDE RECORDS SUMMARY | 2025-04-30 14:10 | XMS_ITS | Encounter Summary ---
Author Organization [facility] Address [address] [place] [address] Phone Care Team Providers Care Tip Mender Name Role Phone Gallito Tejeda MD Primary Care Provider [phone] Reason for Referral * MRI/CAT/PET Scan (Routine) - Closed Specialty Diagnoses / Procedures Referred By Montrell navas Referred To Contact Radiology Diagnoses Chronic right shoulder pain Procedures MRI Shoulder Right Without Contrast Margo Streeter APRN-CNP [address] [place] [address] Phone: tel: fax: [place] [address] [place] [address] Phone: tel: Referral ID Status Reason Start Date Expiration Date Visits Re quested Visits Authorized [id number] Closed 01/26/2024 01/26/2025 1 1 Encounter Details Date Type Department Care Team (Late st Contact Info) Description 01/26/[address] [facility] [address] [facility] [facility] [address] [place] [address] Margo Streeter APRN-CNP [address] [place] [address] Chronic right shoulder pain (Primary Dx) Social History Tobacco Use Types [...] st Contact Info) Description 07/02/2025 9:30 AM DRAFTER TOOL DESIGN Office Visit [address] [address] Amada Herron PA-C [address] [place] [address] 07/31/2025 3:15 PM DRAFTER TOOL DESIGN Office Visit [address] [place] [address] Gallito Tejeda MD [address] [place] [address] [place] [address] 09/02/2025 8:30 AM DRAFTER TOOL DESIGN Clinical Support [address] [place] [address] 09/09/2025 10:30 AM DRAFTER TOOL DESIGN Office Visit [address] [place] [address] Gallito Tejeda MD [address] [place] [address] [place] [address] documented as of this encounter Results * MRI Shoulder Right Without Contrast (02/06/2024 9:05 AM CDT) Anatomical Region Laterality Modality Upper Extremities, Shoulder Right Magn etic Resonance 02/06/2024 9:26 AM CDT Impressions 02/06/2024 9:23 AM CDT Multiple rotator cuff tendon tears and tendinosis. Longitudinal split tear of the long head of the biceps tendon and medial dislocation of the intertubercular component. Biceps tenosynovitis. Small glenohumeral joint effusion. 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 Dictated by: Young Engle 02/06/2024 9:[address] Electronically Signed by: Young Engle 02/06/2024 9:[address] Dictation workstation: [id number] Narrative 02/06/2024 9:23 AM CDT EXAM: MRI SHOULDER RIGHT WO CONTRAST Patient Name: VINI HOUSTON Date of : 1935 Date of Procedure: 02/06/2024 Accession Number: [id number] HISTORY: M25.511-Pain in right shoulder TECHNIQUE: Multiplanar, multisequence MR imaging of the right shoulder without the use of intravenous contrast. COMPARISON: Radiographs dated 01/25/2024. FINDINGS: Moderate AC joint osteoarthritis. Degenerative signal changes about the acromioclavicular joint. Congenital downsloping of the acromion. Complete full-thickness tear of the supraspinatus tendon at the level of the footprint with retraction of torn tendon fibers to the superior humeral head articular surface. Mild infraspinatus tendinosis. Complete full-thickness tear of the subscapularis tendon with retraction of torn tendon fibers of the medial humeral head. No significant rotator cuff muscle atrophy. Medial dislocation of the intertubercular component of the long head of the biceps tendon. Longitudinal split tear and mild tendinosis of the long head of the biceps tendon. Fluid distention of the biceps tendon sheath is greater than the degree of glenohumeral joint fluid. Suspected tears of the superior glenohumeral and coracohumeral ligaments. Small glenohumeral joint effusion. Mild synovitis. No definite labral tear identified. No significant glenohumeral chondromalacia. Moderate volume communicating fluid distention of the subacromial/subdeltoid bursa. Procedure Note Young Engle MD - 02/06/2024 EXAM: MRI SHOULDER RIGHT WO CONTRAST Patient Name: VINI HOUSTON Date of : 1935 Date of Procedure: 02/06/2024 Accession Number: [id number] HISTORY: M25.511-Pain in right shoulder TECHNIQUE: Multiplanar, multisequence MR imaging of the right shoulder without theuse of intravenous contrast. COMPARISON: Radiographs dated 01/25/2024. FINDINGS: Moderate AC joint osteoarthritis. Degenerative signal changes about theacromioclavicular joint. Congenital downsloping of the acromion. Completefull-thickness tear of the supraspinatus tendon at the level of thefootprint with retraction of torn tendon fibers to the superior humeralhead articular surface. Mild infraspinatus tendinosis. Completefull-thickness tear of the subscapularis tendon with retraction of torntendon fibers of the medial humeral head. No significant rotator cuffmuscle atrophy. Medial dislocation of the intertubercular component ofthe long head of the biceps tendon. Longitudinal split tear and mildtendinosis of the long head of the biceps tendon. Fluid distention of thebiceps tendon sheath is greater than the degree of glenohumeral jointfluid. Suspected tears of the superior glenohumeral and coracohumeral ligaments.Small glenohumeral joint effusion. Mild synovitis. No definite labraltear identified. No significant glenohumeral chondromalacia. Moderatevolume communicating fluid distention of the subacromial/subdeltoidbursa. IMPRESSION: Multiple rotator cuff tendon tears and tendinosis. Longitudinal split tear of the long head of the biceps tendon and medialdislocation of the intertubercular component. Biceps tenosynovitis. Small glenohumeral joint effusion. 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 Dictated by: Young Engle 02/06/2024 9:[address] Electronically Signed by: Young Engle 02/06/2024 9:[address] Dictation workstation: [id number] Margo Streeter NURSE RECRUITER-CRYOGENICS ENGINEER IMG MRI PROCEDURES Final R esult documented in this encounter Visit Diagnoses Diagnosis Chronic right shoulder pain- Primary Chronic right shoulder pain documented in this encounter Care Teams Tip Mender Relationship Specialty Start Date End Date Gallito Tejeda MD [address] [facility] [address] [place] [address] PCP - General 03/08/17 Dr [place] Consulting Physician Dental Clearance Center Manager 10/04/17 documented as of this encounter
--- OUTSIDE RECORDS SUMMARY | 2025-04-30 14:10 | XMS_ITS | Clinical Summary ---
Author Organization [facility] Address [address] [place] [address] Care Team Providers Care Customs Guard Name Role Phone Gallito Tejeda MD Primary Care Provider [phone] Allergies No known active allergies Medications simvastatin (ZOCOR) 20 mg tablet Take 20 mg by mouth every 1 (one) day at 6 a.m. 0 Active calcium carbonate (OS-DULCE) 1250 (500 Ca) MG chewable tablet Chew 600 mg every 1 (one) day at 6 a.m. Active vitamin C (ASCORBIC ACID) 100 MG tablet Take 100 mg by mouth every 1 (one) day Active Apoaequorin (PREVAGEN) 10 MG Cap Take 10 mg by mouth Active HYDROcodone-acet aminophen (NORCO 5-325) 5-325 MG per tablet Take 1 tablet by mouth every 4 (four) hours as needed 20 tablet 2 Active Additional Information Patient not taking.Reported on 01/02/2025 rivaroxaban (XARELTO) Tablet Therapy Pack starter pack Take one 15 mg tablet twice daily with food for the first 21 days, then take one 20 mg tablet with food once daily for days 22-30. 1 each 2 Active Additional Information Patient taking differently: 20 mg Oral, Take one 15 mg tablet twice daily with food for the first 21 days, then take one 20 mg tablet with food once daily for days 22-30., Reported on 03/31/2022 Melatonin 3-2 MG Tab Take 3 mg by mouth Active traZODone (DESYREL) 50 mg tablet 2 Active vitamin D3 (CHOLECALCIFEROL ) 125 MCG (5000 UT) Tab Take 5,000 Units by mouth Active foLIC acid (FOLVITE) 800 MCG tablet Take 800 mcg by mouth Active amLODIPine (NORVASC) 5 mg tablet 10 mg 3 Active finasteride (PROSCAR) 5 MG tabletIndication s:Benign Prostatic Hypertrophy Take 1 tablet (5 mg total) by mouth every 1 (one) day 90 tablet 3 3 Active Active Problems Problem Noted Date Diagnosed Date Urinary retention 11/24/2021 Benign prostatic hyperplasia with urinary obstru ction 11/24/2021 Hypertension 11/07/2021 Liver lesion 11/07/2021 Renal mass, right 11/07/2021 Abdominal pain 11/07/2021 Acute cystitis with hematuria 11/07/2021 Mild dementia 11/07/2021 Hypercalcemia 11/07/2021 MAYANK (acute kidney injury) 11/06/2021 Family History Medical History Relation Comments No Known Problems Father No Known Problems Mother Relation Status Comments Father Mother Social History Tobacco Use Types Packs/Day Years Used Date Smoking Tobacco: Former Pipe Smokeless Tobacco: Former Tobacco Cessation:Counseling Given: Not Answered Alcohol Use Standard Drinks/Week Comments Not Currently 0 (1 standard drink = 0.6 oz pur e alcohol) Sex and Gender Information Value Date Recorded Sex Assigned at Not on file Legal Sex Male 6:19 PM CDT Gender Identity Not on file Sexual Orientation Not on file Last Filed Vital Signs Vital Sign Reading Time Taken Comments Blood Pressure 137/73 01/02/2025 10:29 AM CDT Pulse 77 01/02/2025 10:15 AM CDT Temperature 36.9 C (98.4 F) 01/02/2025 10:15 AM CDT Respiratory Rate 14 07/28/2024 8:15 AM RESOLUTION MANAGER Oxygen Saturation 91% 07/28/2024 8:15 AM RESOLUTION MANAGER Inhaled Oxygen Concentration - - Weight 66.2 kg (146 lb) 01/02/2025 10:15 AM CDT Height 170.2 cm (5' 7) 01/02/2025 10:15 AM CDT Body Mass Index 22.87 01/02/2025 10:15 AM CDT Plan of Treatment Health Maintenance Due Date Last Done Comments Lipid Panel 1935 Adult Depression Screening 1953 DTaP/Tdap/Td Vaccines (1 - Tdap) 1954 Pneumococcal Vaccine: 50+ Years (1 of 2 - PCV) 1954 Prostate Cancer Screening 1985 Zoster Vaccine (1 of 2) 1985 Fall Screening 1999 Respiratory Syncytial Virus (RSV) or 60+ Years (1 - 1-dose 75+ series) 2010 Cirrhosis with Gastroscopy (EGD) Follow-Up 10/20/2022 Influenza Vaccine (#1) 2025 04/02/2024, 2021 COVID-19 Vaccine ( season) 2025 04/13/2022, 04/16/2021, 09/16/2020, Additional history exists Creatinine Level 07/28/2025 07/28/2024, 07/2023, 12/08/2022, Additional history exists Potassium Level 07/28/2025 07/28/2024, 11/06/2021 HIB Vaccines Aged Out No longer eligi ble based on patient's age to complete this topic HPV Vaccines (No Doses Required) Completed Hepatitis A Vaccines Aged Out No long er eligible based on patient's age to complete this topic Hepatitis B Vaccines Aged Out No long er eligible based on patient's age to complete this topic IPV Vaccines Aged Out No longer eligi ble based on patient's age to complete this topic Meningococcal B Vaccine Aged Out No l onger eligible based on patient's age to complete this topic Meningococcal Vaccine Aged Out No homer andrea eligible based on patient's age to complete this topic Rotavirus Vaccines Aged Out No longer eligible based on patient's age to complete this topic Procedures Procedure Name Priority Date/Time Associated Diagnosis Comments CMP STAT 07/28/2024 2:47 AM RESOLUTION MANAGER from Last 3 Months or Most Recently Relevant to Health Maintenance Results * (ABNORMAL) CMP (07/28/2024 2:47 AM RESOLUTION MANAGER) Gluc 115(H) 70 - 110 mg/dL 07/28/2024 3:19 AM RESOLUTION MANAGER [facility] BUN 21 5 - 25 mg/dL 07/28/2024 3:19 AM [facility] Creat 1.51(H) 0.72 - 1.25 mg/dL 07/28/2024 3:19 AM [facility] CO2 22 21 - 32 mmol/L 07/28/2024 3:19 AM [facility] Cl 109 96 - 112 mmol/L 07/28/2024 3:19 AM [facility] Na 141 135 - 146 mmol/L 07/28/2024 3:19 AM [facility] K 3.7 3.5 - 5.0 mmol/L 07/28/2024 3:19 AM [facility] Ca 9.9 8.5 - 10.7 mg/dL 07/28/2024 3:19 AM [facility] TP 7.3 6.2 - 8.2 g/dL 07/28/2024 3:19 AM [facility] Alb 4.2 3.4 - 4.7 g/dL 07/28/2024 3:19 AM [facility] T Bili 0.4 0.1 - 1.2 mg/dL 07/28/2024 3:19 AM [facility] Alk Phos 90 39 - 139 U/L 07/28/2024 3:19 AM [facility] AST (SGOT) 26 8 - 42 U/L 07/28/2024 3:19 AM [facility] ALT (SGPT) 16 7 - 40 U/L 07/28/2024 3:19 AM [facility] Anion Gap 10 5-17 mmol/L mmol/L 07/28/2024 3:19 AM [facility] eGFRcr 44(L) >=60 07/28/2024 3:19 AM [facility] Blood 07/28/2024 2:47 AM RESOLUTION MANAGER 07/28/2024 2:53 AM [facility] us Ale Acosta DO LAB BLOOD ORDERABLES Final Result [facility] [address] [place] [address], from Last 3 Months or Most Recently Relevant to Health Maintenance Insurance [employer] MED[employer]ARE Advance Directives * DNR (Latest Code Status on File) Date Activated Date Inactivated Comments 11/17/2021 12:16 PM 01/10/2024 1:43 AM * DNR Date Activated Date Inactivated Comments 11/08/2021 2:29 PM 11/17/2021 12:16 PM Question Answer Comments Who may pronounce: Nurse assess absence of V/S * Full Code Date Activated Date Inactivated Comments 11/06/2021 8:50 PM 11/08/2021 2:29 PM Care Teams Customs Guard Relationship Specialty Start Date End Date Gallito Tejeda MD [address] [place] [address] [facility] - General 11/08/13
[2025-04-30] MEDS: TRANEXAMIC ACID 1,000 MG/10 ML AMPUL 1000 MG TOPICAL (14:36)
--- NOTE | 2025-04-30 16:37 | PC.NURSE ---
Pt still has bleeding around nasal trumpet
[2025-04-30 18:12] LABS: Hematocrit 39.8 % (42.0-52.0); Hemoglobin 12.9 g/dL (14.0-18.0); Immature Granulocyte Percent A 0.4 % (0-0.5); Lymphocytes Absolute Auto 0.88 K/mm3 (0.9-3.2); Mean Corpuscular HGB Conc 32.4 g/dl (32-36); Mean Corpuscular Hemoglobin 29.5 pg (26-34); Mean Corpuscular Volume 91.1 fl (80-100); Nucleated Red Blood Cells Absolute Auto 0.000 K/mm3 (0.0-0.012); Nucleated Red Blood Cells Perc 0.0 % (0.0-0.2); Platelet Count Result 266 k/mm3 (150-375); Red Blood Count 4.37 M/mm3 (4.6-6.20); White Blood Count 10.3 K/mm3 (4.5-10.0)
[2025-04-30 18:28] LABS: INR 1.8; Prothrombin Time 20.3 Seconds (11.1-14.7)
[2025-04-30 18:29] LABS: Partial Thromboplastin Time 30.8 Seconds (22.3-36.8)
[2025-04-30 18:30] LABS: Anion Gap 8 mmol/L (4-12); Blood Urea Nitrogen 19 mg/dL (9-20); Calcium 9.5 mg/dL (8.4-10.2); Carbon Dioxide 25 mmol/L (22-30); Chloride 106 mmol/L (98-107); Estimated CRCL calculation 35 ml/min; Estimated Glomerular Filt Rate 59; Glucose 194 mg/dL (65-110); Potassium 4.1 mmol/L (3.4-5.0); Sodium 139 mmol/L (137-145)
[2025-04-30 18:37] VITALS: BP 188/100; PULSE 78; RESP 20; O2SAT 98
== END 2025-04-30 18:39 | disposition home or self-care (01) ==
PROVIDERS: Emergency Provider Student in an Organized Health Care Education/Training Program
DX: S02.40DA Maxillary fracture, left side, initial encounter for closed fracture (principal); S51.012A Laceration without foreign body of left elbow, initial encounter; S61.412A Laceration without foreign body of left hand, initial encounter; R04.0 Epistaxis; Z23 Encounter for immunization; Z86.718 Personal history of other venous thrombosis and embolism; Z79.01 Long term (current) use of anticoagulants; R90.82 White matter disease, unspecified; W01.0XXA Fall on same level from slipping, tripping and stumbling without subsequent striking against object, initial encounter
CPT/HCPCS: 12002; 12011; 30901; 36415; 70450; 70486; 72125; 80048; 85025; 85610; 85730; 90471; 90715; 99284; A9270; J3290